=== PATIENT | female | born 1950 | race Caucasian/White ===

== ENCOUNTER → 2020-12-25 | Outpatient (CLI) | payer MEDICARE ==
[~2020-12-25] MED LIST: ACET500T68 PO; ASPI-424 PO; CETI10TA74 PO; CHOL5000 PO; CYCL10TA2 PO; DOCU-109 PO; HYDR-2761 PO; HYDR12.575 PO; LISI-130 PO; MELO15TA23 PO; MULT-445 PO; PRAV40TA2 PO; TRAM50TA PO
[2020-12-25 13:44] LABS: BASO # 0.1 x10^3/uL (0.0-0.2); BASO % 1 % (0-3); EOS % 0 % (0-3); HEMATOCRIT 38.6 % (36.0-47.0); HEMOGLOBIN 13.3 g/dL (12.0-15.5); LYMPH # 1.2 x10^3/uL (1.0-4.8); LYMPH % 11 % (24-48); MEAN CORPUSCULAR HEMOGLOBIN 31 pg (25-35); MEAN CORPUSCULAR HGB CONC 34 g/dL (31-37); MEAN CORPUSCULAR VOLUME 89 fL (79-100); MONO # 0.1 x10^3/uL (0.0-1.1); MONO % 1 % (0-9); NEUT # 9.6 x10^3/uL (1.8-7.7); NEUT % 88 % (31-73); PLATELET COUNT 410 x10^3/uL (140-400); RED BLOOD COUNT 4.36 x10^6/uL (3.50-5.40); RED CELL DISTRIBUTION WIDTH 13.3 % (11.5-14.5)
[2020-12-25 13:57] LABS: CREATININE 0.8 mg/dL (0.6-1.0); GFR 70.9; POTASSIUM 3.6 mmol/L (3.5-5.1); TOTAL BILIRUBIN 0.2 mg/dL (0.2-1.0)
--- NOTE | 2020-12-25 14:01 | EKG ---
[facility] [address] [place] [address] Test Date: 2020-12-25 Test Time: 13:52:35 Pat Name: GEE ERVIN Department: Room: Gender: F Resource Agent: CHADWICK : 1950 Requested By: VICKIE COLLIER Order Number: [id number] Reading MD: Measurements Intervals [place] Rate: 65 P: 180 VT: 132 QRS: 8 QRSD: 82 T: 50 QT: 376 QTc: 396 Interpretive Statements SINUS RHYTHM NORMAL ECG RI6.02 No previous ECG available for comparison
--- NOTE | 2020-12-25 14:30 | EKG ---
[facility] [address] [place] [address] Test Date: 2020-12-25 Test Time: 14:26:58 Pat Name: GEE ERVIN Department: Room: Gender: F Healthcare Technician: CEDRIC : 1950 Requested By: VICKIE COLLIER Order Number: [id number] Reading MD: Ceasar Diaz Measurements Intervals [place] Rate: 84 P: 52 UT: 186 QRS: -26 QRSD: 70 T: 6 QT: 338 QTc: 402 Interpretive Statements SINUS RHYTHM LEFTWARD AXIS MINIMAL NONSPECIFIC ST T WAVE CHANGES. Electronically Signed On 12-27-2020 15:33:09 CDT by Ceasar Diaz
[2020-12-25 14:48] LABS: % LYMPHS 7 % (24-48); % MONOS 1 % (0-10); % SEGS 92 % (35-66)
[2020-12-25 14:49] LABS: PLT ESTIMATE INCREASED (ADEQUATE)
[2020-12-27 00:10] LABS: HEMOGLOBIN A1C 6.1 % (4.8-5.6)
== END ==
LOC: SURGPAT 12:58
PROVIDERS: ATTEND Neurological Surgery
DX: Z01.818 Encounter for other preprocedural examination (principal); M51.16 Intervertebral disc disorders with radiculopathy, lumbar region
CPT/HCPCS: 36415; 80053; 83036; 85007; 85025; 87641; 93005

== ENCOUNTER 2020-12-30 07:09 | Day surgery (SDC) | payer MEDICARE ==
[2020-12-25 13:47] VITALS: BP 194/98
--- NOTE | 2020-12-29 21:08 | HP ---
ADMIT DATE: 12/30/2020 HISTORY OF PRESENT ILLNESS: The patient is a pleasant 70-year-old who is having difficulty with right-sided lower back pain and right buttock pain. She said the problem started in 05/2020. The problem began after she fell following a right knee replacement. She said the problem is not improving since that time. She rates her pain 5/10, but it can reach 7-8/10. The pain is constant and increased with bending and turning and activity. She is taking tramadol, Flexeril, and meloxicam. She did see a chiropractor with decompression therapy, which helped her minimally. She ambulates with a cane. She did have problems with low back pain in 2010 which was helped with chiropractic treatment. CURRENT MEDICATIONS: Zyrtec, vitamin B12, vitamin D3, aspirin, Tylenol, multivitamin, pravastatin, hydrochlorothiazide, lisinopril, meloxicam, Flexeril, tramadol. PAST MEDICAL HISTORY: Arthritis, asthma, hypertension, headache. SURGICAL HISTORY: , hysterectomy, carpal tunnel release, knee replacement, hammertoe repair, laser eye surgery and appendectomy. FAMILY HISTORY: Cancer, diabetes, heart disease, hypertension, headache. 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 . Does not smoke. Drinks alcohol 1-2 times per year. ALLERGIES: LATEX. REVIEW OF SYSTEMS: A 12-point review of systems was performed and is noncontributory except that mentioned above. PHYSICAL EXAMINATION: GENERAL: Alert, pleasant, in no acute distress. HEENT: Head is normocephalic, atraumatic. SKIN: Warm and dry. MUSCULOSKELETAL: Lumbar paraspinal muscle bulk is normal, restricted range of motion of the lumbar spine, [id number] tenderness of the lower lumbar spine with palpation, normal range of motion of the lower extremities bilaterally. EXTREMITIES: No clubbing, cyanosis or edema. NEUROLOGIC: Alert and oriented x 3. Strength is 5/5 in the lower extremities bilaterally, sensory is intact to light touch in the lower extremities bilaterally, reflexes were present in the lower extremities bilaterally, negative straight leg raising, ambulates with a cane. IMAGING: I reviewed a lumbar MRI scan. On that study, there is a right paracentral to lateral recess disc protrusion with superior extrusion superimposed on a right lateral disc bulge. This results in moderate right foraminal and mild central canal stenosis. ASSESSMENT AND PLAN: She does have a lumbar herniated disc at L2-L3 on the right. We discussed options. She is not interested in lumbar epidural steroid injections. She would like to proceed with surgery. We spoke about surgery, which would include a lumbar microdiscectomy at L2-L3 on the right. We spoke about the technique, risks, and expected postoperative course. She understands and would like to proceed. ANDREA DR: Kassie TID: [id number] [facility]
[~2020-12-30] VITALS: Ht 152.4 cm; Wt 70.5 kg
[~2020-12-30 07:09] MED LIST changes: +BUPIVACAINE-EPI 0.5%-1:200000 MPF 30 ML VIAL. ONE; -DOCU-109 PO; +GELATIN SPONGE SIZE 100. ONE; -HYDR-2761 PO; +HYDROmorphone 2 MG/ML VIAL IVP PRN; +IV RINGERS,LACTATED 1000ML 1,000 ML IV SCH; +KETOROLAC 60 MG/2 ML VIAL. ONE; +PROCHLORPERAZINE 10 MG/2 ML VIAL. IVP PRN; +THROMBIN TOPICAL 20,000 UNIT SPRAY.SYRN KIT TP ONE; +fentaNYL PF VIAL 100 MCG/2 ML VIAL IVP PRN
[2020-12-30] MEDS ORDERED: ROCURONIUM 50 MG/5 ML VIAL. ONE (08:19)
[2020-12-30] MEDS ORDERED: PROPOFOL 10 MG/ML (20ML) VIAL. IV ONE (08:19)
[2020-12-30] MEDS ORDERED: LIDOCAINE 2% PF 5 ML VIAL. ONE (08:20)
[2020-12-30] MEDS ORDERED: DEXAMETHASONE SOD PHOS 4 MG/ML VIAL ONE (08:22)
[2020-12-30] MEDS ORDERED: ONDANSETRON PF 4 MG/2 ML VIAL. ONE (08:22)
[2020-12-30] MEDS ORDERED: fentaNYL PF VIAL 100 MCG/2 ML VIAL ONE (08:23)
[2020-12-30] MEDS ORDERED: REMIFENTANIL 2 MG VIAL. IV ONE (08:24)
[2020-12-30] MEDS ORDERED: DESFLURANE > 120 MINUTES IH ONE (09:17)
[2020-12-30] MEDS ORDERED: NEOSTIGMINE METHYLSULFATE 5 MG/5 ML SYRINGE. ONE (09:17)
[2020-12-30] MEDS ORDERED: ePHEDrine PF IN SALINE 50 MG/10 ML SYRINGE. IV ONE (09:43)
[2020-12-30] MEDS ORDERED: PHENYLEPHRINE in 0.9% NACL PF 1 MG/10 ML SYRINGE. IV ONE (09:43)
[2020-12-30] MEDS ORDERED: PROPOFOL 50 ML IV ONE (10:09)
[2020-12-30] MEDS ORDERED: MORPHINE SULFATE 2 MG/ML INJ. ONE (12:02)
[2020-12-30] MEDS: MORPHINE SULFATE 2 MG/ML INJ. IVP PRN ×2 (12:04→12:23)
[2020-12-30] MEDS ORDERED: hydrALAZINE 20 MG/ML VIAL. ONE (12:19)
[2020-12-30] MEDS ORDERED: hydrALAZINE 20 MG/ML VIAL. IVP ONE (12:30)
[2020-12-30] MEDS ORDERED: hydrALAZINE 20 MG/ML VIAL. IVP PRN (12:30)
[2020-12-30] MEDS ORDERED: HYDR-2761 PO (12:37)
[2020-12-30] MEDS ORDERED: DOCU-109 PO (12:37)
--- NOTE | 2020-12-30 12:39 | DISCH ---
DISCHARGE INSTRUCTIONS Condition on Discharge Condition on Discharge: Stable Activity After Discharge Activity Instructions for Disc: Activity as tolerated, Avoid exertion Other activity instructions: no driving for a week Bathing Instructions: Shower-keep dressing dry, No Tub Bath until see Lifting Instructions after Dis: No heavy lifting, No pulling or pushing, Do not lift >10 pounds Diet after Discharge Additional Diet Restrictions: resume home diet Wound Incision Care Wound/Incision Care: Ice to area for comfort Other wound/incision instructi: may remove dressing in 48 hours if dry then may shower, no soaking Contacting the after DC Call your doctor for: Concerns you may have Follow-Up Follow up with: Dr. Collier's nurse in 2 weeks [phone] VICKIE COLLIER MD Dec 30, 2020 12:39
[2020-12-30 13:07] VITALS: BP 175/67
[2020-12-30] MEDS ORDERED: HYDROcodone/APAP 5/325MG 1 TAB TABLET PO ONE (13:45)
--- NOTE | 2020-12-31 19:37 | OP ---
DATE OF SURGERY: 12/30/2020 PREOPERATIVE DIAGNOSIS: Herniated lumbar disk, L2-L3, right with right lumbar radiculopathy. POSTOPERATIVE DIAGNOSIS: Herniated lumbar disk, L2-L3, right with right lumbar radiculopathy. OPERATION PERFORMED: Hemilaminotomy and microdiskectomy L2-L3 right combined with a transforaminal microdecompression of the right L2 nerve root. Findings include a superior disk herniation at L2-L3 along with abnormally enlarged L2 root. OPERATIVE INDICATIONS: The patient is a very pleasant 70-year-old woman who developed severe intractable back and right leg pain, which failed to improve with chiropractic treatment and decompressive therapy. She has above-mentioned findings on imaging studies. I recommended lumbar microsurgery. She understood the surgery and the risks. She wished to go ahead. DESCRIPTION OF PROCEDURE: By general endotracheal anesthesia, the patient was positioned prone on the operating room table. Her lumbar region prepped and draped in the standard fashion. We were careful to avoid any pressure points. ULISES hose and AV impulse boots were applied for DVT prophylaxis. The microscope was draped, fluoroscopy was draped and brought into the field. Monitoring was established. Ancef 2 grams was given less than one hour prior to initiation of the surgery. Using fluoroscopic guidance, incision was made over the L2-L3 interspace. I dissected down through skin and subcutaneous tissue, reflected the paraspinal muscles and placed a [place] microdisk retractor, brought in the microscope and the remainder of surgery done with microscope using microscopic technique. I burred down a very generous hemilaminotomy and then carried this further superiorly exposing the dura and the takeoff of the L2 root and I followed the root out laterally and performed a medial foraminal exposure. I peeled away the very thickened ligamentum flavum and found the herniated disk material, which was at the level of disk and had herniated superiorly and removed this material by incising the annulus with a 11 blade and using micropituitaries and blunt hook to tease back and remove disk. The nerve root itself was enlarged abnormally. I felt that this could be due to a proximal ganglion versus neurofibroma present. I carried my decompressive work further laterally into the foramen and performed a transforaminal decompression as well. I removed further lateral disk fragments from this location. At this point, the area was very well decompressed. I did perform a partial foraminotomy as well. I irrigated copiously and obtained perfect hemostasis. I then closed the wound in layers with absorbable suture and the skin was closed with 4-0 subcuticular stitch. I felt the surgery went very well. ABDULAZIZ DR: Silverio TID: [id number]
--- NOTE | 2021-01-01 17:07 | PATHOLOGY ---
[facility] Accession Number: [id number] . 01 Material submitted: . vertebral column - LUMBAR DISC AND DECOMPRESSION. Modifiers: LUMBAR . 01 Clinical history: . LUMBAR HERNIATED DISC WITH RADICULOPATHY LUMBAR MICRODISCECTOMY L2-3 . 02 Diagnosis: Segments of fibrocartilaginous and adipose tissue and bone, lumbar disc and decompression: - Degenerative changes of fibrocartilaginous tissue. LBQ 01/01/2021 1521 Local . 02 Comment: There is no evidence of an acute inflammatory process or malignancy. (JPM/db; 01/01/2021) . 02 Electronically signed: . Drake Izquierdo MD, Pathologist NPI- [id number] . 01 Gross description: . The specimen is received in formalin, labeled "Dianna Box and #1 lumbar disc and decompression". It consists of multiple flannery irregular bony and soft tissue fragments ranging from 0.3 up to 2.0 cm in greatest dimension. Washer And Capper Machine Operator sections are submitted in A1 following decalcification. (MRF; 12/30/2020) MFE/MFE 01/01/2021 1519 Local . 02 Pathologist provided ICD-10: M51.36 . 02 CPT . 598169, [id number] Specimen Comment: A courtesy copy of this report has been sent to [phone], [phone] Specimen Comment: [id number] Specimen Comment: Report sent to / DR ANGULO Performed at: 01 [facility] [address], [place], [place] [id number] MD Perez Nolasco MD Phone: [phone] Performed at: 02 [facility] [address] [place], [place] [id number] MD Drake Izquierdo MD Phone: [phone]
== END 2020-12-30 14:01 | disposition home or self-care (01) ==
LOC: SURG 07:09
PROVIDERS: ATTEND Neurological Surgery
DX: M51.16 Intervertebral disc disorders with radiculopathy, lumbar region (principal); I10 Essential (primary) hypertension; E78.00 Pure hypercholesterolemia, unspecified; J45.909 Unspecified asthma, uncomplicated; K21.9 Gastro-esophageal reflux disease without esophagitis; F32.9 Major depressive disorder, single episode, unspecified; Z90.710 Acquired absence of both cervix and uterus; Z98.890 Other specified postprocedural states; Z79.899 Other long term (current) drug therapy; Z88.1 Allergy status to other antibiotic agents; Z88.8 Allergy status to other drugs, medicaments and biological substances; Z91.040 Latex allergy status
CPT/HCPCS: 63030; 88304; 88311; A4213; A4364; A4930; A6254; A6258; J0360; J0690; J1100; J1885; J2270; J2370; J2405; J2704; J2710; J3010; 76000; A4222

== ENCOUNTER → 2021-01-20 | Outpatient (CLI) | payer MEDICARE ==
[2020-12-30 13:07] VITALS: BP 175/67
[~2021-01-20] MED LIST changes: -BUPIVACAINE-EPI 0.5%-1:200000 MPF 30 ML VIAL. ONE; +DOCU-109 PO; +GADOTERATE 7.5 MMOL/15ML VIAL. IVP ONE; -GELATIN SPONGE SIZE 100. ONE; +HYDR-2761 PO; -HYDROmorphone 2 MG/ML VIAL IVP PRN; -IV RINGERS,LACTATED 1000ML 1,000 ML IV SCH; -KETOROLAC 60 MG/2 ML VIAL. ONE; -PROCHLORPERAZINE 10 MG/2 ML VIAL. IVP PRN; -THROMBIN TOPICAL 20,000 UNIT SPRAY.SYRN KIT TP ONE; -fentaNYL PF VIAL 100 MCG/2 ML VIAL IVP PRN
--- NOTE | 2021-01-20 14:07 | RAD ---
MRI LUMBAR SPINE WITHOUT AND WITH IV CONTRAST History: Reason: L2 NEUROFIBROMA 12.5mL CLARISCAN / Spl. Instructions: / History: Technique: Multiplanar, multi sequential MR imaging was performed of the lumbar spine without and wit h intravenous contrast. Comparison: October 09, 2020 Findings: Postoperative changes L2 right hemilaminectomy. Fluid within the laminectomy defect and expanded the posterior paraspinal soft tissues. There is adjacent dependent edema. Foci of gas within the fluid co llection. No intrathecal pathologic enhancement. Mild retrolisthesis L2 on L3 and L3 on L4. Grade 1 anterolisthesis L5 on S1. Normal vertebral body he ight. No acute fracture. Degenerative endplate edema L2-L3, similar compared to prior. Right renal cyst. Conus terminates at the normal location. No evidence of nerve root clumping. Sacral Tarlov cyst. L1-L2: No canal or neuroforaminal narrowing. L2-L3: Mild retrolisthesis, unchanged. Interval resection of signal abnormality adjacent to the L2-L 3 disc space. Improved canal patency. Mild right neuroforaminal narrowing. L3-L4: Mild retrolisthesis. Small disc bulge. Mild canal narrowing. Mild subarticular recess narrowi ng. Moderate facet arthropathy. Mild bilateral neuroforaminal narrowing. L4-L5: Small disc bulge. Moderate facet arthropathy. Mild subarticular recess narrowing. Mild hide and skin colerer ior canal narrowing. Advanced facet arthropathy. Mild left neuroforaminal narrowing. L5-S1: Grade 1 anterolisthesis. Disc uncovering and slight disc bulge. Mild to moderate canal narrow ing, unchanged. Subarticular recess narrowing. Moderate to severe bilateral neuroforaminal narrowing, unchanged. Impression: 1. Interval postoperative changes L2-L3 with resection of signal abnormality adjacent to the L2-L3 d isc. Fluid collection within the posterior paraspinal soft tissues and laminectomy defect with foci o f gas, likely postoperative. Recommend correlation with timing of surgery. 2. Additional multilevel lumbar spondylosis with canal narrowing most prominent L5-S1, unchanged. 3. Grade 1 anterolisthesis L5 on S1, unchanged. 4. Neuroforaminal narrowing most prominent L5-S1, unchanged. Electronically signed by: Grant Mack DO (01/20/2021 2:05 PM) [id number]
== END ==
LOC: MRI 08:21
PROVIDERS: ATTEND Neurological Surgery
DX: M47.816 Spondylosis without myelopathy or radiculopathy, lumbar region (principal); M48.07 Spinal stenosis, lumbosacral region; M51.27 Other intervertebral disc displacement, lumbosacral region; D36.17 Benign neoplasm of peripheral nerves and autonomic nervous system of trunk, unspecified; N28.1 Cyst of kidney, acquired; M43.17 Spondylolisthesis, lumbosacral region; Z98.890 Other specified postprocedural states
CPT/HCPCS: 72158; A9575

== ENCOUNTER → 2021-02-10 | Outpatient (CLI) | payer MEDICARE ==
[~2021-02-10] MED LIST changes: -GADOTERATE 7.5 MMOL/15ML VIAL. IVP ONE
--- NOTE | 2021-02-10 12:02 | RAD ---
EXAM: Pelvis and right hip, 2 views. HISTORY: Pain. COMPARISON: None. FINDINGS: A frontal view the pelvis and frog-leg view of the right hip are obtained. There is no frac ture, dislocation or subluxation. There is mild marginal femoral and acetabular spurring. There is de generative change involving the lower lumbar spine. IMPRESSION: Mild right hip osteoarthritis. No acute osseous finding. Electronically signed by: Genia Vick MD (02/10/2021 12:00 PM) [id number]
== END ==
LOC: LAB 09:29
PROVIDERS: ATTEND Neurological Surgery
DX: M16.11 Unilateral primary osteoarthritis, right hip (principal); M76.891 Other specified enthesopathies of right lower limb, excluding foot; M47.816 Spondylosis without myelopathy or radiculopathy, lumbar region
CPT/HCPCS: 73502

== ENCOUNTER → 2021-02-26 | Outpatient (CLI) | payer MEDICARE ==
[~2021-02-26] MED LIST changes: +IOHEXOL 180 MG/ML 10 ML VIAL. ONE; +POLY17PO29 PO; +methylPREDNISolone ACETATE 80 MG/ML VIAL. ONE
--- NOTE | 2021-02-26 12:51 | PDOC1 ---
INITIAL PAIN CONSULT DATE OF SERVICE: DOS: DATE: 02/26/21 TIME: 12:45 CHIEF COMPLAINT: Chief Complaint: Low back and right lower extremity pain HISTORY OF PRESENT ILLNESS: 70-year-old female presents with history of pain low back right lower extremity for several years worse since June 2020 patient eventually had lumbar microdiscectomy on December 30, 2020 with the pain still persistent in the right low back and right lower extremity. Patient reports he got slightly better after the surgery but still very painful where she is still taking pain medication patient reports is in the low back on the right side rating the right posterior lateral thigh lateral anterior thigh anterior medial thigh. Patient describes as constant stabbing throbbing with numbness and tingling aching and cramping in the low back radiating to the right lower extremity. Patient reports it wakes her from sleep least to 3 times a night does not affect her bowel bladder control and does affect her ability walks using a cane which she is holding in her left hand. Patient reports better with sitting or laying down but still waking her from sleep at night. Patient had a new MRI scan lumbar spine dated January 20, 2021 showing interval postoperative changes of L2-3 with resection of signal abnormality just at the L2-3 disc multilevel lumbar spondylosis with canal narrowing most prominent at L5-S1 and small disc bulge at L3-4 with mild bilateral neuroforaminal narrowing. Patient rates her disability rating 0-10 10 being worst is a 4 with family responsibilities 6 with recreation social activity 5 with occupation sexual behavior and life support activities. Patient reports no loss of motor function but significant fatigability the right lower extremity with standing and walking. PAST MEDICAL HISTORY: PMH: Hypertension, hearing loss, arthritis, peptic ulcer PREVIOUS SURGERIES: Past Surgical Hx: Right knee replacement, left knee replacement, lumbar microdiscectomy, C- section, appendectomy, carpal tunnel repair, orbital replacement, tendon repair left ankle CURRENT MEDICATIONS: Current Meds: Active Scripts Medications Dose Route/Sig Max Daily Dose Days Date Category Dose Instructions Miralax (Polyethylene Glycol 3350) 17 Gm Powd.pack 1 Pkt PO QODAY 02/26/21 Reported Cyclobenzaprine Hcl 10 Mg Tablet 1 Tab PO TID PRN 12/25/20 Reported Acetaminophen 500 Mg Tablet 650 Mg PO BID 12/25/20 Reported Vitamin D3 (Vitamin D) 125 Mcg Capsule 50 Mcg PO DAILY 12/25/20 Reported 5,000 UNITS = 125 MCG Adult Low Dose Aspirin Ec (Aspirin) 81 Mg Tablet.dr 1 Tab PO DAILY 30 12/25/20 Reported Meloxicam 15 Mg Tablet 1 Tab PO HS 30 12/25/20 Reported Pravastatin Sodium 40 Mg Tablet 1 Tab PO QHS 12/25/20 Reported Zyrtec (Cetirizine Hcl) 10 Mg Tablet 1 Tab PO DAILY 12/25/20 Reported Multivitamins (Multivitamin) 1 Each Tablet 1 Tab PO DAILY 12/25/20 Reported Hydrochlorothiazide Capsule (Hydrochlorothiazide) 12.5 Mg Capsule 12.5 Mg PO DAILY 12/25/20 Reported Lisinopril 40 Mg Tablet 1 Tab PO DAILY 12/25/20 Reported ALLERGIES; Allergies: Coded Allergies: diazepam (Verified Allergy, Severe, Anaphylaxis, 12/30/20) egg (Verified Allergy, Severe, Anaphylaxis, 12/30/20) ibuprofen (Verified Allergy, Severe, Anaphylaxis, 12/30/20) latex (Verified Allergy, Severe, Anaphylaxis, 12/30/20) pentazocine (Verified Allergy, Severe, Anaphylaxis, 12/30/20) erythromycin base (Verified Allergy, Intermediate, Rash, 12/30/20) FAMILY HISTORY: Family Hx: Heart disease, cancers, hypertension SOCIAL HISTORY: Social Hx: Patient drinks alcohol only very rarely does not smoke does not use any illegal illicit or recreational drugs is single lives locally with one grandchild and lives in [facility] REVIEW OF SYSTEMS: ROS: Positive for those items mentioned in history of present illness, all systems are reviewed, otherwise negative ,and are complete full and well-documented on patient's chart. PHYSICAL EXAM: VS: Blood pressure is 160/90 pulse 74 respirations 20 temperature 98.1 F, height is 5 foot, weight is 160 pounds PE: PHYSICAL EXAMINATION: GENERAL: The patient is awake, alert, oriented, appropriate, very pleasant in demeanor. HEENT: Shows normocephalic, atraumatic. Extraocular movements are intact and symmetrical. Oral cavity: Mucous membranes moist and pink. NECK: Shows anterior throat supple without palpable lymphadenopathy noted. Swallow reflex symmetrical. CHEST: Shows normal on inspection. Breath sounds are clear bilaterally, distant but no rales or rhonchi. HEART: Shows S1, S2 clear. No murmurs auscultated. ABDOMEN: Soft, nontender, nondistended, obese. No palpable organomegaly is noted. No rebound or guarding demonstrated. BACK: Shows spine grossly in the midline. Normal-appearing cervical lordotic curvature. There is slightly increased thoracic kyphosis, some minor flattening of the lumbar lordotic curvature. Well-healed surgical scars noted in the midline of the lumbar distribution. Lumbar paraspinous muscles show symmetrical on inspection, on palpation shows some moderate tenderness diffusely throughout the upper, middle and lower distribution of the paraspinous muscles bilaterally and also into the lower thoracic paraspinous musculature, firm and tender, but without specific trigger points, without radiation of pain. The patient has good rotational motion of the lumbar spine, both laterally as well as extension and flexion without significant difficulty. No tenderness over the spinous processes, sacrum or sacroiliac regions. EXTREMITIES: Lower extremities show deep tendon reflexes 1+ in the patellar and tendo calcaneus tendons. Motor exam is 4 on a scale of 5 with right dorsiflexion, extension, quadriceps and hamstring flexion and 5/5 on the left. Peripheral pulses are 1+ posterior tibial. No peripheral edema is noted bilaterally. Lower extremities are warm and dry to touch, equal in color and a ppearance. Straight leg raise noted to be positive on the right about 40 degrees, left side is negative. Gaenslen's and Mark's maneuvers are negative bilaterally. The patient is able to stand, stand on her toes but is unstable doing so, feels unstable with putting all of her weight on her right leg and walks with a favoring gait does appear to favor the right lower extremity fairly significantly again using a cane in her left hand. SKIN: Shows warm and dry, good turgor. No edema. No sores, rashes or bruising throughout. IMPRESSION: Impression: 70-year-old female with long history low back pain right lower extremity pain status post lumbar microdecompression December 30, 2020 with persistent radicular pain in the right lower extremity. MRI scan lumbar spine as noted Hypertension Hearing loss Arthritis Plan: Options were discussed with the patient including conservative management continued physical therapy and interventional techniques. Patient like to pursue interventional techniques. We discussed a lumbar epidural steroid injection using description as well as anatomical models described the pr ocedure. Risks were discussed including but not limited to: Bleeding, infection, possibility of epidural hematoma and subsequent neurological compromise, dural puncture, headaches, spinal cord and/or nerve damage, side effects of steroid medication, and poor results regarding pain control. Patient understands and wished to proceed. Patient will return to the clinic in approximate 2 weeks for follow-up, was counseled as return appointment, activity level, and side effect to be aware of. Procedure is lumbar epidural steroid injection under local anesthetic using sterile prep and drape at the L2-3 level using C-arm fluoroscopic guidance in both AP and lateral views medications injected is 120 mg Depo-Medrol +10mL preservative-free normal saline and 2 mL contrast- condition at discharge is stable patient tolerated procedure well had no complications. SLOANE PARKER MD Feb 26, 2021 12:51
--- NOTE | 2021-02-26 12:53 | PDOC4 ---
Procedure Note: ICD 10 Code: ICD 10 Code: M 54.16 M 4 7.1 M 5 1.36 M 96.1 Procedure Note: Patient was consented for lumbar epidural steroid injection with fluoroscopic guidance. Risks were discussed including but not limited to: Bleeding, infection, possibility of epidural hematoma and subsequent neurological comprom ise, dural puncture, headaches, spinal cord and/or nerve damage, side effects of steroid medication, and poor results regarding pain control. Patient understands and wished to proceed. Procedure is lumbar epidural steroid injection under local anesthetic using sterile prep and drape at the L2-3 level using C-arm fluoroscopic guidance in both AP and lateral views medications injected is 120 mg Depo-Medrol +10mL preservative-free normal saline and 2 mL contrast- condition at discharge is stable patient tolerated procedure well had no complications. SLOANE PARKER MD Feb 26, 2021 12:53
== END | disposition home or self-care (01) ==
LOC: PNCL 10:22
PROVIDERS: ATTEND Anesthesiology
DX: M51.16 Intervertebral disc disorders with radiculopathy, lumbar region (principal); M96.1 Postlaminectomy syndrome, not elsewhere classified; M79.604 Pain in right leg; I10 Essential (primary) hypertension; M19.90 Unspecified osteoarthritis, unspecified site; E78.00 Pure hypercholesterolemia, unspecified; J45.909 Unspecified asthma, uncomplicated; K21.9 Gastro-esophageal reflux disease without esophagitis; F32.9 Major depressive disorder, single episode, unspecified; Z90.710 Acquired absence of both cervix and uterus; Z98.890 Other specified postprocedural states; Z79.899 Other long term (current) drug therapy; Z79.82 Long term (current) use of aspirin; Z91.040 Latex allergy status; Z88.8 Allergy status to other drugs, medicaments and biological substances
CPT/HCPCS: 62323; 99214; J1040; Q9965; G0463

== ENCOUNTER → 2021-03-12 | Outpatient (CLI) | payer MEDICARE ==
--- NOTE | 2021-03-12 10:58 | PDOC ---
Progress Note - Pain Clinic Date of Service: DOS: DATE: 03/12/21 TIME: 10:55 Diagnosis: Dx: Lumbar radiculopathy with lumbar degenerative disease and lumbar spondylosis with lumbar postlaminectomy syndrome History or Present Illness: HPI: 70-year-old female returns for follow-up status post lumbar epidural steroid action x1. Patient was very well under percent improvement for the first 3 days after the injection but patient reports that she "overdid it" at work with walking and standing and bending and stooping and reports the pain came back fairly quickly over the next several days in the low back and in the right lower extremity mostly the posterior gluteus posterior lateral thigh lateral anterior thigh anteromedial thigh medial groin and medial thigh superiorly to the knee on the right side patient reports a 10 on scale 10 is worse over the past week 6 on average for the least is a 6 today patient was aching tingling burning can be radiating constant with walking standing better with sitting or lying down patient reports is generalized not awaken her from sleep at night but occasionally will she lays on her right side patient reports no bowel or bladder incontinence no motor or sensory deficit. Patient reports that with the pain returning she occasionally has pain on the left side now as well which is new for her as it was on the right side previously but some in the left side as well as in the groin on the left and left gluteus. Physical Exam: VS: Blood pressure is 152/98 pulse 84 respirations 16 temperature 97.9 F weight is 163 pounds PE: PHYSICAL EXAMINATION: GENERAL: The patient is awake, alert, oriented, appropriate, very pleasant in demeanor HEENT: Shows normocephalic, atraumatic. Extraocular movements are intact and symmetrical. Oral cavity: Mucous membranes moist and pink. Dentition is intact. NECK: Shows anterior throat supple without palpable lymphadenopathy noted. Swallow reflex symmetrical. CHEST: Shows normal on inspection. Breath sounds are clear bilaterally, no rales rhonchi or wheezes. HEART: Shows S1, S2 clear. No murmurs auscultated. ABDOMEN: Soft, nontender, nondistended, obese. No palpable organomegaly is noted. BACK: Shows spine grossly in the midline. Normal-appearing cervical lordotic curvature. There is increased thoracic kyphosis, some minor flattening of the lumbar lordotic curvature with well-healed surgical scar noted. Lumbar paraspinous muscles show symmetrical on inspection, on palpation shows some moderate tenderness diffusely throughout the upper, middle and lower distribution of the paraspinous muscles, but without specific trigger points, without radiation of pain. The patient has good rotational motion of the lumbar spine, both laterally as well as extension and flexion without significant difficulty. EXTREMITIES: Lower extremities show deep tendon reflexes 1 in the patellar and tendo calcaneus tendons. Motor exam is 4 on a scale of 5 with right dorsiflexion, extension, quadriceps and hamstring flexion and 5/5 on the left. Peripheral pulses are 1+ posterior tibial. No peripheral edema is noted bilaterally. Lower extremities are warm and dry to touch, equal in color and appearance. SKIN: Shows warm and dry, good turgor. No edema. No sores, rashes or bruising throughout. Procedure: Procedure: Options were discussed with the patient. Patient chart was reviewed as her current medication regimen updated current view of systems updated today as well. We will proceed with a lumbar epidural steroid injection today with fluoroscopic guidance. Risks were discussed including but not limited to: Bleeding, infection, possibility of epidural hematoma and subsequent neurological compromise, dural puncture, headaches, spinal cord and/or nerve damage, side effects of steroid medication, and poor results regarding pain control. Patient understands and wished to proceed. Patient will return to clinic in approximately 2 weeks for follow-up, was counseled as return appointment, typical, and side effects to be aware of. Medication Injected: Med Injected: Procedure is lumbar epidural steroid injection under local anesthetic using sterile prep and drape at the L2-3 level using C-arm fluoroscopic guidance in both AP and lateral views medications injected is 120 mg Depo-Medrol +10mL preservative-free normal saline and 2 mL contrast- condition at discharge is stable patient tolerated procedure well had no complications. Condition at Discharge: Condition at Discharge: Condition at discharge is stable, patient tolerated procedure well and had no complications. SLOANE PARKER MD Mar 12, 2021 10:58
--- NOTE | 2021-03-12 10:59 | PDOC4 ---
Procedure Note: ICD 10 Code: ICD 10 Code: M54.16 M4 7.816 M51.36 M 96.1 Procedure Note: Patient was consented for lumbar epidural steroid injection with fluoroscopic guidance. Risks were discussed including but not limited to: Bleeding, infection, possibility of epidural hematoma and subsequent neurological compromi se, dural puncture, headaches, spinal cord and/or nerve damage, side effects of steroid medication, and poor results regarding pain control. Patient understands and wished to proceed. Procedure is lumbar epidural steroid injection under local anesthetic using sterile prep and drape at the L2-3 level using C-arm fluoroscopic guidance in both AP and lateral views medications injected is 120 mg Depo-Medrol +10mL preservative-free normal saline and 2 mL contrast- condition at discharge is stable patient tolerated procedure well had no complications. SLOANE PARKER MD Mar 12, 2021 10:59
== END | disposition home or self-care (01) ==
LOC: PNCL 09:55
PROVIDERS: ATTEND Anesthesiology
DX: M51.16 Intervertebral disc disorders with radiculopathy, lumbar region (principal); M47.26 Other spondylosis with radiculopathy, lumbar region; M96.1 Postlaminectomy syndrome, not elsewhere classified; I10 Essential (primary) hypertension; E78.00 Pure hypercholesterolemia, unspecified; K21.9 Gastro-esophageal reflux disease without esophagitis; M19.90 Unspecified osteoarthritis, unspecified site; F32.9 Major depressive disorder, single episode, unspecified; Z90.710 Acquired absence of both cervix and uterus; Z98.890 Other specified postprocedural states; Z79.899 Other long term (current) drug therapy; Z79.82 Long term (current) use of aspirin; Z88.1 Allergy status to other antibiotic agents; Z91.040 Latex allergy status; Z88.8 Allergy status to other drugs, medicaments and biological substances
CPT/HCPCS: 62323; J1040; Q9965

== ENCOUNTER → 2021-05-06 | Outpatient (CLI) | payer MEDICARE ==
[~2021-05-06] MED LIST changes: +CYCL10TA19 PO; -CYCL10TA2 PO; +methylPREDNISolone ACETATE 40 MG/ML VIAL. ONE
--- NOTE | 2021-05-06 11:09 | PDOC4 ---
Procedure Note: ICD 10 Code: ICD 10 Code: M54.16 M51.36 7.816 M 96.1 Procedure Note: Patient was consented for lumbar epidural steroid injection with fluoroscopic guidance. Risks were discussed including but not limited to: Bleeding, infection, possibility of epidural hematoma and subsequent neurological compromi se, dural puncture, headaches, spinal cord and/or nerve damage, side effects of steroid medication, and poor results regarding pain control. Patient understands and wished to proceed. Procedure is lumbar epidural steroid injection under local anesthetic using sterile prep and drape at the L2-3 level using C-arm fluoroscopic guidance in both AP and lateral views medications injected is 120 mg Depo-Medrol +10mL preservative-free normal saline and 2 mL contrast- condition at discharge is stable patient tolerated procedure well had no complications. SLOANE PARKER MD May 06, 2021 11:09
--- NOTE | 2021-05-06 11:09 | PDOC ---
Progress Note - Pain Clinic Date of Service: DOS: DATE: 05/06/21 TIME: 11:04 Diagnosis: Dx: Lumbar radiculopathy with lumbar degenerative disease lumbar spondylosis and lumbar postlaminectomy syndrome History or Present Illness: HPI: 70-year-old female returns for follow-up status post lumbar epidural steroid injection x1. Patient reports about 90% provement after last injection pain now returning in the low back and right lower extremity posterior gluteus lateral thigh anterior thigh medial thigh in the groin as well as the medial leg and knee patient reports an 8 on scale 10 is worse over the past week 7 on average 5 its least initially though to much better distance walking doing household activities work activities travel with greater ease and comfort sleeping much be tter at night still wakes her from sleep now about once every 5-6 hours patient reports pain is aching and tight in the back stabbing away on and off in intensity radiating the right lower extremity is noted. Patient reports no bowel or bladder incontinence. 70-year-old female returns for follow-up status post lumbar epidural steroid injection x1. Patient reports 90% improvement after her last injection pain that returned in the low back and right lower extremity posterior gluteus lateral thigh anterior thigh medial thigh in the groin as well as the medial leg and knee on the right side. Patient reports a "frozen shoulder "on the right she is doing physical therapy for the well and is beginning to help also. Physical Exam: VS: Blood pressure is 135/89 pulse 70 respirations 18 temperature 97.4 degrees Height 5 foot weight 265 pounds PE: PHYSICAL EXAMINATION: GENERAL: The patient is awake, alert, oriented, appropriate, very pleasant in demeanor HEENT: Shows normocephalic, atraumatic. Extraocular movements are intact and symmetrical. Oral cavity: Mucous membranes moist and pink. NECK: Shows anterior throat supple without palpable lymphadenopathy noted. Swallow reflex symmetrical. CHEST: Shows normal on inspection. Breath sounds are clear bilaterally, no rales or rhonchi auscultated. HEART: Shows S1, S2 clear. No murmurs auscultated. ABDOMEN: Soft, nontender, nondistended, obese. No palpable organomegaly is noted. BACK: Shows spine grossly in the midline. Normal-appearing cervical lordotic curvature. There is slightly increased thoracic kyphosis, some minor flattening of the lumbar lordotic curvature with well-healed midline surgical scar again noted. Lumbar paraspinous muscles show symmetrical on inspection, on palpation shows some moderate tenderness diffusely throughout the upper, middle and lower distribution of the paraspinous muscles, but without specific trigger points, without radiation of pain. The patient has good rotational motion of the lumbar spine, both laterally as well as extension and flexion without significant difficulty. No tenderness over the spinous processes, sacrum or sacroiliac regions. EXTREMITIES: Lower extremities show deep tendon reflexes 1 in the patellar and tendo calcaneus tendons. Motor exam is 4 on a scale of 5 with right dorsiflexion, extension, quadriceps and hamstring flexion and 5/5 on the left. Peripheral pulses are 1+ posterior tibial. No peripheral edema is noted bilaterally. Lower extremities are warm and dry to touch, equal in color and appearance. SKIN: Shows warm and dry, good turgor. No edema. No sores, rashes or bruising throughout. Procedure: Procedure: Options discussed with patient. Patient's chart was reviewed her current medications and updated current review of systems updated today as well. We will proceed with a lumbar epidural steroid ejection stable fluoroscopic guidance. Risks were discussed including but not limited to: Bleeding, infection, possibility of epidural hematoma and subsequent neurological compromise, dural puncture, headaches, spinal cord and/or nerve damage, side effects of steroid medication, and poor results regarding pain control. Patient understands and wished to proceed. Patient to return to clinic in approximate 2 weeks of follow-up, was counseled return appointment, typical, and side effect to be aware of. Medication Injected: Med Injected: Procedure is lumbar epidural steroid injection under local anesthetic using sterile prep and drape at the L2-3 level using C-arm fluoroscopic guidance in both AP and lateral views medications injected is 120 mg Depo-Medrol +10mL preservative-free normal saline and 2 mL contrast- condition at discharge is stable patient tolerated procedure well had no complications. Condition at Discharge: Condition at Discharge: Condition at discharge stable, patient tolerated procedure well and had no complications. SLOANE PARKER MD May 06, 2021 11:09
== END | disposition home or self-care (01) ==
LOC: PNCL 10:12
PROVIDERS: ATTEND Anesthesiology
DX: M51.16 Intervertebral disc disorders with radiculopathy, lumbar region (principal); M47.26 Other spondylosis with radiculopathy, lumbar region; M96.1 Postlaminectomy syndrome, not elsewhere classified; I10 Essential (primary) hypertension; E78.00 Pure hypercholesterolemia, unspecified; J45.909 Unspecified asthma, uncomplicated; K21.9 Gastro-esophageal reflux disease without esophagitis; M19.90 Unspecified osteoarthritis, unspecified site; F32.9 Major depressive disorder, single episode, unspecified; Z90.710 Acquired absence of both cervix and uterus; Z98.890 Other specified postprocedural states; Z79.899 Other long term (current) drug therapy; Z79.82 Long term (current) use of aspirin; Z91.040 Latex allergy status; Z88.8 Allergy status to other drugs, medicaments and biological substances; Z88.1 Allergy status to other antibiotic agents
CPT/HCPCS: 62323; J1030; J1040; Q9965

== ENCOUNTER → 2021-08-04 | Outpatient (CLI) | payer MEDICARE ==
[~2021-08-04] MED LIST changes: -IOHEXOL 180 MG/ML 10 ML VIAL. ONE; -methylPREDNISolone ACETATE 40 MG/ML VIAL. ONE; -methylPREDNISolone ACETATE 80 MG/ML VIAL. ONE
--- NOTE | 2021-08-04 12:37 | KCIC ---
Examination: MRI of the right hip without contrast HISTORY: History of right hip pain COMPARISON: None available Technique: Multiplanar, multisequence MR imaging of the right hip was performed without contrast FINDINGS: The right femoral head is within the acetabulum. The attachment of the hamstring tendon to the ischia l tuberosity, attachment of the gluteal tendons to the greater trochanter, attachment of the iliopsoa s tendon to the lesser trochanter and the attachment of the rectus femoris tendon to the anterior inf erior iliac spine grossly appears intact. Small amount of fluid identified in the greater tuberosity region likely greater trochanter bursitis. Moderate joint space loss identified in the right hip join t likely degenerative changes. Superficial fraying of cartilage identified in the hip joint. There is mild superficial fraying of the labrum IMPRESSION: 1. Small amount of fluid identified in the greater trochanter region likely greater trochanter bursi tis. 2. Moderate degenerative changes right hip joint. Electronically signed by: Gabe Urbano MD (08/04/2021 12:35 PM) [id number]
== END ==
LOC: KCIC MRI 10:57
PROVIDERS: ATTEND Physician Assistant
DX: M16.11 Unilateral primary osteoarthritis, right hip (principal); M25.851 Other specified joint disorders, right hip
CPT/HCPCS: 73721

== ENCOUNTER → 2021-09-08 | Outpatient (CLI) | payer MEDICARE ==
[~2021-09-08] MED LIST changes: +DEXAMETHASONE PRES.FREE 10 MG/ML VIAL. ONE; +IOHEXOL 180 MG/ML 10 ML VIAL. ONE
--- NOTE | 2021-09-08 10:39 | PDOC ---
Progress Note - Pain Clinic Date of Service: DOS: DATE: 09/08/21 TIME: 10:32 Diagnosis: Dx: Lumbar to colopathy with lumbar degenerative disease lumbar spondylosis lumbar postlaminectomy syndrome History or Present Illness: HPI: 70-year-old female returns with complaints of low back and right lower extremity pain posterior gluteus posterior lateral thigh low anterior thigh anteromedial thigh and in the groin on the right side worse with walking standing change positions patient had the epidural steroid injection May 06, 2021 with very good results about 90% improvement for several months patient reports about a 75% provement now the pain returning in the low back and the right lower extremity patient reports aching and sharp dull tight shooting cramping on and off in intensity worse with walking standing change positions better with sitting or laying down patient reports a 10 on scale 10 is worse over the past week 8 on average and a 6 at its current and 5 at its least. Patient reports cramping in the back tight is tingling sharp and dull alternating also some new x-rays obtained of the right hip showing some trochanteric bursitis as well as some moderate degenerative changes in the right hip. Patient reports it is worse with walking standing and weightbearing with the right hip and especially the groin pain on the right side in the finding of bursitis significant and new lateral aspect of the right hip which is very tender her report when she lays on that side. Patient reports no bowel or bladder incontinence. Physical Exam: VS: Blood pressure is 118/78 pulse 90 respirations 16 temperature 98.1 F height is 5 foot 1 inch weight is 170 pounds. PE: PHYSICAL EXAMINATION: GENERAL: The patient is awake, alert, oriented, appropriate, very pleasant in demeanor HEENT: Shows normocephalic, atraumatic. Extraocular movements are intact and symmetrical. Oral cavity: Mucous membranes moist and pink. NECK: Shows anterior throat supple without palpable lymphadenopathy noted. Swallow reflex symmetrical. CHEST: Shows normal on inspection. Breath sounds are clear bilaterally, distant but no rales or rhonchi auscultated. HEART: Shows S1, S2 clear. No murmurs auscultated. ABDOMEN: Soft, nontender, nondistended. No palpable organomegaly is noted. BACK: Shows spine grossly in the midline. Normal-appearing cervical lordotic curvature. There is moderately increased thoracic kyphosis, some flattening of the lumbar lordotic curvature, with well-healed midline surgical scar. Lumbar paraspinous muscles show symmetrical on inspection, on palpation shows some moderate tenderness diffusely throughout the upper, middle and lower distribution of the paraspinous muscles, but without specific trigger points, without radiation of pain. The patient has good rotational motion of the lumbar spine, both laterally as well as extension and flexion without significant diffi culty. No tenderness over the spinous processes, sacrum or sacroiliac regions. EXTREMITIES: Lower extremities show deep tendon reflexes 1+ in the patellar and tendo calcaneus tendons. Motor exam is 4 on a scale of 5 with right dorsiflexion, extension, quadriceps and hamstring flexion and 5/5 on the left. Peripheral pulses are 1+ posterior tibial. No peripheral edema is noted bi laterally. Patient has positive Mark's maneuver on the right side only left side is negative. Significant tenderness over the right greater trochanter consistent with bursitis. Lower extremities are warm and dry to touch, equal in color and appearance. SKIN: Shows warm and dry, good turgor. No edema. No sores, rashes or bruising throughout. Procedure: Procedure: Options were discussed with the patient. Patient's old chart was reviewed as her current medication regimen updated and her current review of systems updated today as well. We will proceed with a lumbar epidural steroid injection today with fluoroscopic guidance risks were discussed including but not limited to: Bleeding, infection, possibility of epidural hematoma and subsequent neurological compromise, dural puncture, headaches, spinal cord and/or nerve damage, side effects of steroid medication, and poor results regarding pain control. Patient understands and wished to proceed. Patient will return to [facility] in approximately 2 weeks for follow-up, was counseled as to return appointment, activity level, and side effect to be aware of. Medication Injected: Med Injected: Procedure is lumbar epidural steroid injection under local anesthetic using sterile prep and drape at the L2-3 level using C-arm fluoroscopic guidance in both AP and lateral views medications injected is 20 mg dexamethasone +10mL preservative-free normal saline and 2 mL contrast- condition at discharge is stable patient tolerated procedure well had no complications. Condition at Discharge: Condition at Discharge: Condition at discharge stable, patient tolerated procedure well and had no complications. SLOANE PARKER MD Sep 08, 2021 10:39
--- NOTE | 2021-09-08 10:40 | PDOC4 ---
Procedure Note: ICD 10 Code: ICD 10 Code: M54.16 M51.36 M4 7.16 M 96.1 Procedure Note: Patient was consented for lumbar epidural steroid injection with fluoroscopic guidance. Risks were discussed including but not limited to: Bleeding, infection, possibility of epidural hematoma and subsequent neurological compromise, dural puncture, headaches, spinal cord and/or nerve damage, side effects of steroid medication, and poor results regarding pain control. Patient understands and wished to proceed. Procedure is lumbar epidural steroid injection under local anesthetic using sterile prep and drape at the L2-3 level using C-arm fluoroscopic guidance in both AP and lateral views medications injected is 20 mg dexamethasone +10mL preservative-free normal saline and 2 mL contrast- condition at discharge is stable patient tolerated procedure well had no complications. SLOANE PARKER MD Sep 08, 2021 10:40
== END | disposition home or self-care (01) ==
LOC: PNCL 09:32
PROVIDERS: ATTEND Anesthesiology
DX: M51.16 Intervertebral disc disorders with radiculopathy, lumbar region (principal); M47.26 Other spondylosis with radiculopathy, lumbar region; M96.1 Postlaminectomy syndrome, not elsewhere classified; I10 Essential (primary) hypertension; E78.00 Pure hypercholesterolemia, unspecified; J45.909 Unspecified asthma, uncomplicated; K21.9 Gastro-esophageal reflux disease without esophagitis; M19.90 Unspecified osteoarthritis, unspecified site; F32.9 Major depressive disorder, single episode, unspecified; Z79.82 Long term (current) use of aspirin; Z90.710 Acquired absence of both cervix and uterus; Z98.890 Other specified postprocedural states; Z79.899 Other long term (current) drug therapy; Z88.1 Allergy status to other antibiotic agents; Z91.040 Latex allergy status; Z88.8 Allergy status to other drugs, medicaments and biological substances
CPT/HCPCS: 62323; J1100; Q9965

== ENCOUNTER → 2021-09-22 | Outpatient (CLI) | payer MEDICARE ==
[~2021-09-22] MED LIST changes: -DEXAMETHASONE PRES.FREE 10 MG/ML VIAL. ONE; +OMEP20CA16 PO; +methylPREDNISolone ACETATE 40 MG/ML VIAL. ONE; +methylPREDNISolone ACETATE 80 MG/ML VIAL. ONE
--- NOTE | 2021-09-22 10:01 | PDOC ---
Progress Note - Pain Clinic Date of Service: DOS: DATE: 09/22/21 TIME: 09:58 Diagnosis: Dx: Lumbar radiculopathy with lumbar degenerative disc disease lumbar spondylosis and lumbar postlaminectomy syndrome History or Present Illness: HPI: 70-year-old female returns for follow-up status post lumbar epidural steroid injection x1. Patient reports about 50% improvement overall with pain in the low back and the right lower extremity. Patient reports she was increase her activities with greater ease and comfort for the first week or so sleeping better at night walking greater distances doing household activities travel with greater ease and comfort but the pain is beginning to return still about 50% improved overall on the right side patient reports in the right low back right posterior gluteus lateral thigh anterior thigh medial thigh medial groin on the right side also in the anterior quadriceps patient reports a 9 on scale 10 is worse over the past week 7 on average 5 to [place] is a 7 today patient reports aching sharp can be shooting in the leg cramping in the back constant with weightbearing walking standing better with sitting or laying down generally does not awaken her from sleep at night most nights. Patient reports no bowel or bladder incontinence no loss of motor function some significant fatigability with the right leg as well. Physical Exam: VS: Blood pressure is 139/92 pulse 93 respirations 18 temperature is 97.9 F weight is 168 pounds. PE: PHYSICAL EXAMINATION: GENERAL: The patient is awake, alert, oriented, appropriate, very pleasant in demeanor HEENT: Shows normocephalic, atraumatic. Extraocular movements are intact and symmetrical. Oral cavity: Mucous membranes moist and pink. Dentition is intact. NECK: Shows anterior throat supple without palpable lymphadenopathy noted. Swallow reflex symmetrical. CHEST: Shows normal on inspection. Breath sounds are clear bilaterally, distant but no rales or rhonchi auscultated. HEART: Shows S1, S2 clear. No murmurs auscultated. ABDOMEN: Soft, nontender, nondistended. No palpable organomegaly is noted. BACK: Shows spine grossly in the midline. Normal-appearing cervical lordotic curvature. There is mildly increased thoracic kyphosis, some flattening of the lumbar lordotic curvature with well-healed midline surgical scar. Lumbar paraspinous muscles show symmetrical on inspection, on palpation shows some moderate tenderness diffusely throughout the upper, middle and lower distribution of the paraspinous muscles, but without specific trigger points, without radiation of pain. The patient has good rotational motion of the lumbar spine, both laterally as well as extension and flexion without significant difficulty. No tenderness over the spinous processes, sacrum or sacroiliac regions. EXTREMITIES: Lower extremities show deep tendon reflexes 1+ in the patellar and tendo calcaneus tendons. Motor exam is 4 on a scale of 5 with right dorsiflexion, extension, quadriceps and hamstring flexion and 5/5 on the left. Peripheral pulses are 1+ posterior tibial. No peripheral edema is noted bilaterally. Lower extremities are warm and dry to touch, equal in color and appearance. SKIN: Shows warm and dry, good turgor. No edema. No sores, rashes or bruising throughout. Procedure: Procedure: Options were discussed with the patient. Patient's old chart was reviewed as her current medication regimen updated current review of systems updated today as well. We will proceed with a lumbar epidural steroid injection today with fluoroscopic guidance. Risks were discussed including but not limited to: Bleeding, infection, possibility of epidural hematoma and subsequent neurological compromise, dural puncture, headaches, spinal cord and/or nerve damage, side effects of steroid medication, and poor results regarding pain control. Patient understands and wished to proceed. Patient will return to clinic in approximately 2 weeks for follow-up, was counseled as to return appointment, active level, and side effects to be aware of. Medication Injected: Med Injected: Procedure is lumbar epidural steroid injection under local anesthetic using sterile prep and drape at the L2-3 level using C-arm fluoroscopic guidance in both AP and lateral views medications injected is 20 mg dexamethasone +10mL preservative-free normal saline and 2 mL contrast- condition at discharge is stable patient tolerated procedure well had no complications. Condition at Discharge: Condition at Discharge: Condition at discharge stable, patient Taisha the procedure well and had no complications. SLOANE PARKER MD Sep 22, 2021 10:01
--- NOTE | 2021-09-22 10:02 | PDOC4 ---
Procedure Note: ICD 10 Code: ICD 10 Code: M54.16 M51.36 M 96.1 Procedure Note: Patient was consented for lumbar epidural steroid injection fluoroscopic guidance. Risks were discussed including but not limited to: Bleeding, infection, possibility of epidural hematoma and subsequent neurological compromise, dural puncture, headaches, spinal cord and/or nerve damage, side effects of steroid medication, and poor results regarding pain control. Patient understands and wished to proceed. Procedure is lumbar epidural steroid injection under local anesthetic using sterile prep and drape at the L2-3 level using C-arm fluoroscopic guidance in both AP and lateral views medications injected is 20 mg dexamethasone +10mL preservative-free normal saline and 2 mL contrast- condition at discharge is stable patient tolerated procedure well had no complications. SLOANE PARKER MD Sep 22, 2021 10:02
== END | disposition home or self-care (01) ==
LOC: PNCL 08:45
PROVIDERS: ATTEND Anesthesiology
DX: M51.16 Intervertebral disc disorders with radiculopathy, lumbar region (principal); M47.26 Other spondylosis with radiculopathy, lumbar region; M96.1 Postlaminectomy syndrome, not elsewhere classified; I10 Essential (primary) hypertension; E78.00 Pure hypercholesterolemia, unspecified; J45.909 Unspecified asthma, uncomplicated; K21.9 Gastro-esophageal reflux disease without esophagitis; M19.90 Unspecified osteoarthritis, unspecified site; F32.9 Major depressive disorder, single episode, unspecified; Z90.710 Acquired absence of both cervix and uterus; Z98.890 Other specified postprocedural states; Z79.899 Other long term (current) drug therapy; Z79.82 Long term (current) use of aspirin; Z91.040 Latex allergy status; Z88.8 Allergy status to other drugs, medicaments and biological substances
CPT/HCPCS: 62323; J1030; J1040; Q9965

== ENCOUNTER → 2021-10-14 | Outpatient (CLI) | payer MEDICARE ==
[~2021-10-14] MED LIST changes: +BUPIVACAINE MPF 0.25% 10 ML VIAL. ONE; +DEXAMETHASONE PRES.FREE 10 MG/ML VIAL. ONE; -methylPREDNISolone ACETATE 40 MG/ML VIAL. ONE; -methylPREDNISolone ACETATE 80 MG/ML VIAL. ONE
--- NOTE | 2021-10-14 12:27 | PDOC ---
Progress Note - Pain Clinic Date of Service: DOS: DATE: 10/14/21 TIME: 12:22 Diagnosis: Dx: Lumbar radiculopathy with lumbar degenerative disease and lumbar spondylosis with lumbar postlaminectomy syndrome Right great greater trochanteric bursitis History or Present Illness: HPI: 70-year-old female returns for follow-up status post lumbar epidural steroid injection with about 100% improvement in the low back and lower extremity pain patient's chief complaint now is pain in the right side of her hip patient reports it is very well localized to the right lateral hip worse with walking standing changing position especially is stepping forward and to the side or putting all her weight on her right leg with weightbearing with stairs or steps patient reports her low back is doing much better as is the radiating pain in the lower extremities but that lateral hip is her chief complaint is a 10 on scale 10 is worse over the past week 7 on average 5 its least is a 7 today describes sharp and burning cramping can be constant with weightbearing and standing patient reports the right side of her body hurts as well above this area in the pelvis with radiating pain to the lateral thigh as well as slightly above it into the lateral hip and pelvis as well. Patient reports is much worse with changing position specially getting out of bed or sitting in the morning on the right side. Patient reports no bowel or bladder incontinence. Physical Exam: VS: Blood pressure is 143/92 pulse 107 respirations 18 temperature 98.8 F Height weight is 168 pounds. PE: PHYSICAL EXAMINATION: GENERAL: The patient is awake, alert, oriented, appropriate, very pleasant in demeanor HEENT: Shows normocephalic, atraumatic. Extraocular movements are intact and symmetrical. Oral cavity: Mucous membranes moist and pink. Dentition is intact. NECK: Shows anterior throat supple without palpable lymphadenopathy noted. Swallow reflex symmetrical. CHEST: Shows normal on inspection. Breath sounds are clear bilaterally, no rales or rhonchi auscultated. HEART: Shows S1, S2 clear. No murmurs auscultated. ABDOMEN: Soft, nontender, nondistended. No palpable organomegaly is noted. BACK: Shows spine grossly in the midline. Normal-appearing cervical lordotic curvature. There is slightly increased thoracic kyphosis, some minor flattening of the lumbar lordotic curvature. Lumbar paraspinous muscles show symmetrical on inspection, on palpation shows some moderate tenderness diffusely throughout the upper, middle and lower distribution of the paraspinous muscles without specific trigger points, without radiation of pain. The patient has good rotational motion of the lumbar spine, both laterally as well as extension and flexion without significant difficulty. EXTREMITIES: Lower extremities show deep tendon reflexes 1+ in the patellar and tendo calcaneus tendons. Motor exam is 4 5 on a scale of 5 with right dorsiflexion, extension, quadriceps and hamstring flexion and 5/5 on the left. Peripheral pulses are 1+ posterior tibial. No peripheral edema is noted bilaterally. Lower extremities are warm and dry. Patient's right hip shows significant tenderness over the right greater trochanter with direct palpation and with mild pressure with some mild radiation to the lateral aspect of the thigh. Left side is nontender. SKIN: Shows warm and dry, good turgor. No edema. No sores, rashes or bruising throughout. Procedure: Procedure: Options were discussed with patient. Patient chart was use her current medication regimen updated current review of systems updated today as well. We will proceed with a right greater trochanteric bursa injection today with fluoroscopic guidance. Risks are discussed including not limited to bleeding infection possibility of intravascular injection sequelae spread local anesthetic numbness side effects steroid medication portals regarding pain cont rol. Patient understands wished to proceed. Patient will return to clinic in approximate 2 weeks for follow-up, was counseled as to return appointment, active level, and side effects to be aware of. Medication Injected: Med Injected: Under sterile prep and drape patient in supine position using C-arm fluoroscopic guidance patient's right greater trochanter was visualized. Using 25-gauge needle and 1% lidocaine area lateral to the greater trochanter was anesthetized. Using a 25-gauge needle under direct fluoroscopic visualization the greater trochanteric bursa was contacted with negative aspiration noted. 1.5 cc of contrast was then injected with good local spread at the greater trochanteric bursa without washout. At this time, a solution containing 3 cc of 0.25% bupivacaine and 20 mg dexamethasone was then injected into the greater trochanteric bursa. Patient tolerated the procedure well and had no complications. Condition at Discharge: Condition at Discharge: Condition at discharge stable, paced tolerated procedure well and had no complications. SLOANE PARKER MD October 14, 2021 12:27
--- NOTE | 2021-10-14 12:27 | PDOC4 ---
Procedure Note: ICD 10 Code: ICD 10 Code: M70.61 Procedure Note: Patient was consented for right greater trochanteric bursa injection with fluoroscopic guidance. Risk were discussed including not limited to bleeding infection possibility of intravascular injection sequelae spread local anesthetic numbness side effects steroid medication, exposure to fluoroscopy and poor results regarding pain control. Patient understands wished to proceed. Under sterile prep and drape patient in supine position using C-arm fluoroscopic guidance patient's right greater trochanter was visualized. Using 25-gauge needle and 1% lidocaine area lateral to the greater trochanter was anesthetized. Using a 25-gauge needle under direct fluoroscopic visualization the greater trochanteric bursa was contacted with negative aspiration noted. 1.5 cc of contrast was then injected with good local spread at the greater trochanteric bursa without washout. At this time, a solution containing 3 cc of 0.25% bupivacaine and 20 mg dexamethasone was then injected into the greater trochanteric bursa. Patient tolerated the procedure well and had no complications. SLOANE PARKER MD October 14, 2021 12:27
== END | disposition home or self-care (01) ==
LOC: PNCL 09:58
PROVIDERS: ATTEND Anesthesiology
DX: M70.61 Trochanteric bursitis, right hip (principal); M51.16 Intervertebral disc disorders with radiculopathy, lumbar region; M47.26 Other spondylosis with radiculopathy, lumbar region; M96.1 Postlaminectomy syndrome, not elsewhere classified; I10 Essential (primary) hypertension; E78.00 Pure hypercholesterolemia, unspecified; J45.909 Unspecified asthma, uncomplicated; K21.9 Gastro-esophageal reflux disease without esophagitis; F32.9 Major depressive disorder, single episode, unspecified; Z79.82 Long term (current) use of aspirin; Z79.899 Other long term (current) drug therapy; Z98.890 Other specified postprocedural states; Z91.040 Latex allergy status; Z88.8 Allergy status to other drugs, medicaments and biological substances
CPT/HCPCS: 20610; 77002; J1100; J3490; Q9965